=== PATIENT | female | born 1960 | race Caucasian/White ===

== ENCOUNTER 2025-03-11 23:48 | Emergency (ER) | payer OTHER, SELFPAY ==
[2025-03-11 23:57] VITALS: BP 109/67
[2025-03-11 23:58] VITALS: BP 109/67
[2025-03-12] VITALS (7 sets, daily range): BP systolic 83–110; BP diastolic 50–64; BMI 36.8
[2025-03-12 00:45] LABS: Hematocrit 35.7 % (37.0-47.0); Hemoglobin 12.5 g/dL (12.0-16.0); Mean Corp Hgb Conc. 35.0 g/dL (33.0-37.0); Mean Corpuscular Volume 91.3 fL (81.0-99.0); Nucleated Red Blood Cells % 0 %; Platelet Count 245 10^3/uL (130-400); Red Cell Dist. Width 12.9 % (11.5-14.5)
[2025-03-12 01:02] LABS: ALT (SGPT) 24 U/L (0-35); AST (SGOT) 23 U/L (14-36); Albumin 4.5 g/dl (3.5-5.0); Alkaline Phosphatase 86 U/L (38-126); Blood Urea Nitrogen 25 mg/dl (7-17); Calcium 10.1 mg/dl (8.4-10.2); Carbon Dioxide 22 mmol/L (22-30); Chloride 108 mmol/L (98-107); Estimated Creatinine Clearance 110 ml/min; Glucose 123 mg/dl (70-99); Potassium 4.4 mmol/L (3.5-5.1); Sodium 136 mmol/L (135-145); Total Protein 6.8 g/dl (6.3-8.2); eGFR > 60.00
[2025-03-12 01:13] LABS: Troponin I < 0.012 ng/ml
[2025-03-12 01:14] LABS: APTT 22.6 Sec (23.4-35.0)
--- NOTE | 2025-03-12 02:28 | ED.GENMED ---
Addendum entered and electronically signed by Yunior Das DO 03/12/25 04:50:
Update prior to discharge patient reevaluated resting comfortably no acute distress reviewed lab results and CAT scan results with her blood pressure little soft in the low 90s, she has no abdominal pain no shortness of breath will start saline
hydration
Original Note:
History of Present Illness
General
Chief Complaint: Chest Pain
Source: patient and family
Exam Limitations: none
Time Seen by Provider: 03/12/25 02:14
Nursing documentation reviewed up to this point in time: agreed with
History of Present Illness
History of Present Illness:
64-year-old female history of hypertension no history of CAD Sharp pain in her left anterior chest around 6:30 PM worse to take a deep breath, no nausea or vomiting no prior episodes, feeling better now, no fever or chills no abdominal pain no leg
edema no history of DVT PE nondrinker non-smoker
Past History
Past History
ED Past Medical History: HTN
ED Past Surgical History: Negative Cardiac
Social History
Tobacco: Non-smoker
Alcohol: None
Drug: None
Living: with family
Employment: Employed
Review of Systems
Review of Systems
All Other Systems: Not applicable
Constitutional: Denies fever
Respiratory: Reports trouble breathing
Cardiac: Reports chest pain
ABD/GI: Reports no symptoms; Denies abdominal pain or nausea
: Reports no symptoms
Musculoskeletal: Reports no symptoms
Skin: Reports no symptoms
Phy Exam
Physical Exam
Physical Exam:
Physical Exam
General: no apparent distress, not acutely ill
Neck: No jaundice
Heart: s1/s2 regular rate and rhythm, no murmur. equal radial pulses.
Lungs: no acute respiratory distress. clear bilaterally
Abdomen: Soft nontender
Neuro: alert and oriented. no focal neurological deficits
Skin: no rash
Psychiatric: well kept. interactive and cooperative
Extremities: no edema. no calf tenderness.
Scores
Heart Score for Chest Pain Patients
STEMI patient?: No
History: Slightly or Non-Suspicious
ECG: Normal
Age: >45 - <65 years
Risk Factors: 1 or 2 Risk Factors
Troponin: </= Normal Limit
Heart Score for Chest Pain Patients: 2
Heart Score Risk: 2.5% MACE over next 6 weeks
Course
Orders/Labs/Results
Orders:
Orders
03/12/25 00:09
Electrocardiogram (*1) Urgent
Reason for Study: Chest Pain
EKG- Treatment ONCE
03/12/25 00:27
Complete Blood Count/With Diff Urgent
Comprehensive Metabolic Panel Urgent
Troponin I Urgent
03/12/25 00:33
PTT Urgent
03/12/25 02:26
CT Chest PE Study Urgent
Comment:
Reason For Exam: sob
03/12/25 02:38
Troponin I Urgent
Abnormal Lab Results
03/12/25 03/12/25
00:27 00:33
RBC 3.91 L 10^6/uL
(4.20-5.40)
Hct 35.7 L %
(37.0-47.0)
MCH 32.0 H pg
(27.0-31.0)
APTT 22.6 L Sec
(23.4-35.0)
Chloride 108 H mmol/L
(98-107)
BUN 25 H mg/dl
(7-17)
Glucose 123 H mg/dl
(70-99)
03/12/25 00:27
03/12/25 00:27
Vital Signs
Initial and Last Documented VS:
Initial Vital Signs
Resp BP
15 109/67
08/10/25 23:57 03/11/25 23:57
Last Documented Vital Signs
Temp Pulse Resp BP Pulse Ox
98.2 F 68 17 90/54 95
03/11/25 23:58 03/12/25 02:45 03/12/25 02:45 03/12/25 02:00 03/12/25 02:45
MDM/Problems Addressed
Differential Diagnosis Includes:
Pleurisy PE pneumothorax less likely ACS
MDM/Problems Addressed:
Chest pain sharp left-sided
Chronic conditions affecting care: HTN
Acute Exacerbation and/or Progression of Chronic Illness: HTN
*Radiology
Radiology exam reviewed: radiology read reviewed
*Pulse Oximetry
SaO2: 96
Oxygen Mode of Delivery: Room air
Patient hypoxic: no
*EKG
Interpreted by ED Provider?: Yes
Interpretation: normal
Comparison EKG: no comparison EKG present
Heart Rate: 78
Rate: normal
Rhythm: sinus
Ischemia: non-specific ST changes
*[employer] Interpretation
Rate: normal
Interpretation: normal
Heart Rate: 78
Rhythm: sinus
*Critical Care Note
Total Time (30-74mins, 75-104mins- exclusive of procedures): Not Applicable
Update Note
Update Note:
4:15 AM troponin x [address] scan no PE patient resting comfortably
ED Attending Note
-
Portions of this chart may have been created with voice recognition software.� Occasional wrong word or��sound alike� substitutions may have occurred due to the inherent limitations of voice recognition software.
Discharge Plan
Departure
Patient Disposition: Home (Routine Discharge)
Date of Disposition: 03/12/25
Time of Disposition: 04:21
Patient with high blood pressure during this ER visit?: No
Condition: Good
Discharge Problem:
Pleurisy
Instructions: Chest Pain PCP Follow Up, Costochondritis (DC)
Prescriptions:
New
ibuprofen 600 mg tablet
600 mg PO Q6H PRN (Reason: Pain) Qty: 20 0RF
Referrals:
Morgan Morales MD [Family Provider, Internal Medicine] - Next open appointment
Interventions
Interventions:
*Risk Screen - Suicide Last Done: 03/11/25 23:58
*General Assessment Last Done: 03/11/25 23:58
*Neglect/Abuse Screening Last Done: 03/11/25 23:58
*ED- Fall Risk Assessment Last Done: 03/12/25 00:10
*ED COVID-19 Vaccine History Last Done: 03/12/25 00:10
ED- Cardiac Assessment Last Done: 03/12/25 00:10
Discharge Date and Time
Print Language: SERBIAN
[2025-03-12 03:15] LABS: Troponin I < 0.012 ng/ml
--- NOTE | 2025-03-12 04:49 | ED.GENMED ---
History of Present Illness
General
Chief Complaint: Chest Pain
Time Seen by Provider: 03/12/25 02:14
Past History
Past History
ED Past Medical History: HTN
ED Past Surgical History: Negative Cardiac
Social History
Tobacco: Non-smoker
Alcohol: None
Drug: None
Living: with family
Employment: Employed
Course
Orders/Labs/Results
Orders:
Orders
03/12/25 00:09
Electrocardiogram (*1) Urgent
Reason for Study: Chest Pain
EKG- Treatment ONCE
03/12/25 00:27
Complete Blood Count/With Diff Urgent
Comprehensive Metabolic Panel Urgent
Troponin I Urgent
03/12/25 00:33
PTT Urgent
03/12/25 02:26
CT Chest PE Study Urgent
Comment:
Reason For Exam: sob
03/12/25 02:38
Troponin I Urgent
Abnormal Lab Results
03/12/25 03/12/25
00:27 00:33
RBC 3.91 L 10^6/uL
(4.20-5.40)
Hct 35.7 L %
(37.0-47.0)
MCH 32.0 H pg
(27.0-31.0)
APTT 22.6 L Sec
(23.4-35.0)
Chloride 108 H mmol/L
(98-107)
BUN 25 H mg/dl
(7-17)
Glucose 123 H mg/dl
(70-99)
03/12/25 00:27
03/12/25 00:27
Vital Signs
Initial and Last Documented VS:
Initial Vital Signs
Resp BP
15 109/67
03/11/25 23:57 03/11/25 23:57
Last Documented Vital Signs
Temp Pulse Resp BP Pulse Ox
98.2 F 68 17 90/54 95
03/11/25 23:58 03/12/25 04:45 03/12/25 04:45 03/12/25 04:44 03/12/25 04:45
*Pulse Oximetry
SaO2: 95
Oxygen Mode of Delivery: Room air
ED Attending Note
-
Portions of this chart may have been created with voice recognition software.� Occasional wrong word or��sound alike� substitutions may have occurred due to the inherent limitations of voice recognition software.
Discharge Plan
Departure
Patient Disposition: Home (Routine Discharge)
Date of Disposition: 03/12/25
Time of Disposition: 04:21
Patient with high blood pressure during this ER visit?: No
Condition: Good
Discharge Problem:
Pleurisy
Instructions: Costochondritis (DC), Chest Pain PCP Follow Up
Prescriptions:
New
ibuprofen 600 mg tablet
600 mg PO Q6H PRN (Reason: Pain) Qty: 20 0RF
Referrals:
Morgan Morales MD [Family Provider, Internal Medicine] - Next open appointment
Interventions
Interventions:
*Risk Screen - Suicide Last Done: 03/11/25 23:58
*General Assessment Last Done: 03/11/25 23:58
*Neglect/Abuse Screening Last Done: 03/11/25 23:58
*ED- Fall Risk Assessment Last Done: 03/12/25 00:10
*ED COVID-19 Vaccine History Last Done: 03/12/25 00:10
ED- Cardiac Assessment Last Done: 03/12/25 00:10
Discharge Date and Time
Print Language: KOREAN
[2025-03-12] MEDS: NSS 1000 IV (04:53)
== END 2025-03-12 05:49 | disposition home or self-care (01) ==
LOC: EMR 23:48
PROVIDERS: Emergency Medicine; EMERGENCY PHYSICIAN Emergency Medicine; FAMILY PHYSICIAN Internal Medicine
DX: R09.1 Pleurisy (principal); I10 Essential (primary) hypertension
CPT/HCPCS: 99284; 96360; 71275; 80053; 84484; 85025; 85730; 93005; Q9967